=== PATIENT | female | born 1980 | race Caucasian/White ===

== ENCOUNTER → 2016-04-23 | Outpatient (CLI) | payer MEDICAID ==
--- NOTE | 2016-04-23 17:45 | US ---
Ultrasound Extremity, Nonvascular Indication: Palpable lump in the left groin. TECHNIQUE: Grayscale color and cine imaging of the palpable abnormality in the left groin. Findings: There is a well encapsulated avascular semicompressible nodule at the palpable location sup erficial to the abdominal musculature measuring 5.0 x 2.9 x 0.8 cm. IMPRESSION: Findings most consistent with a subcutaneous lipoma measuring 5.0 x 2.9 x 0.8 cm.
== END ==
LOC: FIMAGING 10:29
PROVIDERS: ATTEND Obstetrics & Gynecology
DX: D17.1 Benign lipomatous neoplasm of skin and subcutaneous tissue of trunk (principal)

== ENCOUNTER → 2017-12-17 | Outpatient (CLI) | payer MEDICAID | LOC: FIMAGING 15:17 | PROVIDERS: ATTEND Obstetrics & Gynecology | DX: O09.521 Supervision of elderly multigravida, first trimester (principal); Z3A.12 12 weeks gestation of pregnancy ==

== ENCOUNTER → 2018-02-15 | Outpatient (CLI) | payer MEDICAID | LOC: FIMAGING 11:52 | PROVIDERS: ATTEND Advanced Practice Midwife | DX: O09.522 Supervision of elderly multigravida, second trimester (principal); Z3A.20 20 weeks gestation of pregnancy ==

== ENCOUNTER 2018-03-18 11:17 | Observation (INO) | payer MEDICAID ==
--- NOTE | 2018-03-18 15:53 | PDGENHP ---
History and Physical History and Physical: CARE: [facility] HPI: Patient is a 38 yo G 3 P 2 who presents to L&D after having some bright red bleeding when wiping after a high impact cardio workout. She started feeling some uterine cramping shortly there after and presented to labor and delivery very anxious and worried. She had a small spot of bleeding on her underwear upon arrival but not active bleeding. She reports good activity and describes cramping as mild. She report she has had light spotting on a few occasions after intercourse or a cardio workout over the last several weeks. Denies leaking fluid or other concerns. EDC: 06/28/18 which is based on LMP: 09/22/2017 which is known and consistent with Ultrasound at 8 weeks. Her is complicated by: - anemia - taking iron bid - AMA Review of Systems: Constitutional: Denies any fever, chills, or fatigue HEENT: denies any visual changes, difficulty swallowing, hearing loss Cardiovascular: Denies any chest pain, palpitations, leg swelling Respiratory: denies any cough, wheezing, or shortness of breathe GI: Denies any nausea, vomiting, diarrhea, constipation : denies any dysuria, urgency, frequency, vaginal bleeding Musculoskeletal: denies any muscle or bone pain Skin: denies any rashes Neuro: denies any headache, seizures, lightheadedness, dizziness, or loss of consciousness Psychiatric: denies any depression, anxiety, or SI/HI thoughts HISTORY: Previous OB history: 2013,2016 Past medical history: none Past surgical history: none Medications: PNV, folic acid, iron Allergies (list reaction): NKDA LABS: Rh: A pos ABS: Neg Rubella: Immune HbsAg: NR HIV: NR VDRL: NR 1hr: n/a GC: Neg Chlamydia: Neg Pap: Normal GBS: n/a PHYSICAL EXAM: Constitutional: WN, A&Ox3 HEENT: normocephalic atraumatic, supple Heart: RRR, no murmur Chest: CTA-B Abdomen: Soft, nontender, gravid SVE: ft/thick/high - sterile spec : some dk red/brown blood noted in vagina but no active bleeding. BD Affirm and GBS collected. Extremities: no edema, negative eloisa's sign Neuro: grossly normal Psych: normal affect assessment: Reassuring FHTs, baseline 140s - appropriate for gestational age Contractions: toco : irritable Assessment: 1) 38 yo G 3 P 2 with IUP@ 25 weeks with vaginal bleeding after cardio workout. No active bleeding. 2) Reassuring FHTs. Baby with good activity 3) No longer feeling uterine cramping after 2 hours of surveillance Plan: 1) Will discharge home with bleeding/PTL precautions 2) Pelvic rest/no cardio workouts 3) Follow up next week for normal MURPHY appt. 4) Call with any further bleeding, LOF, painful cramping/contractions 5) Reviewed plan with Dr Loredo.
== END 2018-03-18 14:44 | disposition home or self-care (01) ==
LOC: FLD 11:17
PROVIDERS: ADMIT Advanced Practice Midwife; ATTEND Advanced Practice Midwife
DX: O26.852 Spotting complicating pregnancy, second trimester (principal); O99.012 Anemia complicating pregnancy, second trimester; O09.522 Supervision of elderly multigravida, second trimester; Z3A.25 25 weeks gestation of pregnancy
CPT/HCPCS: G0378

== ENCOUNTER 2018-06-26 05:02 | Inpatient (IN) | payer MEDICAID ==
[2018-06-26] MEDS ORDERED: TERBUTALINE SULFATE 1 MG/ML VIAL ONE (05:13)
[2018-06-26] MEDS ORDERED: MISOPROSTOL 200 MCG TAB ONE (05:13)
[2018-06-26] MEDS ORDERED: LIDOCAINE 1% 300 MG/30 ML SDV ONE (05:13)
[2018-06-26] MEDS ORDERED: OXYTOCIN 10 UNIT/ML VIAL ONE (05:13)
[2018-06-26] MEDS ORDERED: AMMONIA AROMATIC 1 EACH AMP IH ONE (05:13)
[2018-06-26] MEDS ORDERED: OLIVE OIL 118 ML BTL MISC ONE (05:13)
[2018-06-26] MEDS ORDERED: LR 1,000 ML IV PRN (05:34)
[2018-06-26] MEDS ORDERED: LIDOCAINE 1% 300 MG/30 ML SDV SC PRN (05:34)
[2018-06-26] MEDS ORDERED: AMMONIA AROMATIC 1 EACH AMP IH PRN (05:34)
[2018-06-26] MEDS ORDERED: TERBUTALINE SULFATE 1 MG/ML VIAL IV PRN (05:34)
[2018-06-26] MEDS ORDERED: OLIVE OIL 118 ML BTL MISC PRN (05:34)
[2018-06-26] MEDS ORDERED: EPSOM SALT 454 GM TP PRN (05:34)
[2018-06-26] MEDS ORDERED: MISOPROSTOL 200 MCG TAB PO PRN (05:34)
[2018-06-26] MEDS ORDERED: OXYTOCIN/RINGERS LACTATE 1,000 ML IV PRN (05:34)
[2018-06-26] MEDS ORDERED: IBUPROFEN 600 MG TAB PO PRN (05:34)
--- NOTE | 2018-06-26 05:52 | PDGENHP ---
History and Physical History and Physical: Care: [facility] HPI: Bre Tse is a 38 yo with IUP@ 39-4 weeks that presents to L&D with complaints of contractions. They started at 0100, worse since 0300. She denies any LOF, VB. She reports +FM. She is rating pain with contractions 09/13. EDC: 06/28/18 which is based on LMP: 09/22/17 which is known and consistent with Ultrasound at 8 weeks. Her is complicated by: AMA, anemia Review of Systems: Constitutional: Denies any fever, chills, or fatigue HEENT: denies any visual changes, difficulty swallowing, hearing loss Cardiovascular: Denies any chest pain, palpitations, leg swelling Respiratory: denies any cough, wheezing, or shortness of breathe GI: Denies any nausea, vomiting, diarrhea, constipation : denies any dysuria, urgency, frequency, vaginal bleeding Musculoskeletal: denies any muscle or bone pain Skin: denies any rashes Neuro: denies any headache, seizures, lightheadedness, dizziness, or loss of consciousness Psychiatric: denies any depression, anxiety, or SI/HI thoughts HISTORY: Previous OB history: x2 Past medical history: none Past surgical history: none Social: Denies any alcohol, tobacco, or drug use. - Omar. Family history: mother and father - heart disease/HTN Medications: PNV, iron, folic acid Allergies (list reaction): NKDA LABS: Rh: A+ ABS: Neg Rubella: Immune HbsAg: NR HIV: NR VDRL: NR 1hr: 133 GC: Neg Chlamydia: Neg Pap: Normal GBS: negative PHYSICAL EXAM: Constitutional: WN, A&Ox3 HEENT: normocephalic atraumatic, supple Skin: Warm, dry, intact Heart: RRR, no murmur Chest: CTA-B Abdomen: Soft, nontender, gravid SVE: /-1 Extremities: edema, negative homans sign Neuro: grossly normal Psych: normal affect assessment: FHT baseline 130 +accels, no decels, moderate variability Contractions: toco q 4-6 Assessment: * [id number] with IUP@ 39-4wks * Active labor * GBS Negative * cat 1 FHR tracing Plan: * admit to L&D * IA * AROM if desired * pain management PRN * anticipate Today's visit was approximately 30 min, of which >50% of visit 20 min, was spent face to face with pt on direct counseling/coordination of care.
[2018-06-26] MEDS ORDERED: SIMETHICONE 80 MG TAB CHEW PO PRN (07:41)
[2018-06-26] MEDS ORDERED: oxyCODONE IR 5 MG TAB PO PRN (07:41)
[2018-06-26] MEDS ORDERED: HYDROCORTISONE 0.5% CREAM TP PRN (07:41)
[2018-06-26] MEDS ORDERED: DOCUSATE SODIUM 100 MG CAP PO PRN (07:41)
--- NOTE | 2018-06-26 07:51 | OBDEL ---
Info Type: Vaginal Presentation at Delivery: Vertex L&D Analgesia/Anesthesia Type: None GBS+: No Intrapartum Medications: Generic Name Dose Route Start Last Admin Trade Name Freq PRN Reason Stop Dose Admin [place] Oil 118 ml 06/26/18 05:34 06/26/18 06:48 Sweet Oil MISC 12/23/18 05:33 1 btl ONCE PRN Administration perineal massage Indications for Delivery: Spontaneous Labor, SROM Vaginal Delivery - Delivery Provider Delivery Physician/CNM: Shanti Gomez - Labor and Delivery Onset of Contractions Date: 06/26/18 Onset of Contractions Time: 01:00 Onset of Contractions Type: Spontaneous Rupture of Membranes Date: 06/26/18 Rupture of Membranes Time: 06:43 Rupture of Membranes Type: Spontaneous Amniotic Fluid Color: Clear Dilation Complete Date: 06/26/18 Dilation Complete Time: 06:45 Placenta Delivery Date: 06/26/18 Placenta Delivery Time: 07:10 Total Hours of Labor: 6 Repair: 3-0, Vicryl Vaginal Sponge Count Correct: Yes Vaginal Needle Count Correct: Yes Vaginal Sweep Performed: Yes EBL: 250 Delivery Events: None Delivery Comment: delivered standing/squatting. dad helped bring baby to mothers chest [place] Data PARUL: 06/29/18 Gestational Age: 39 week(s) and 4 day(s) [place] Delivery Date: 06/26/18 Delivery Time: 06:49 Sex of : Male Score (1 Min): 8 Score (5 Min): 9 ICD10 Worksheet Patient Problems: Problems Problem Status Onset First degree perineal laceration during delivery Acute (spontaneous vaginal delivery) Acute Labor established Acute Spontaneous rupture of membranes Acute - ICD10 Problem Qualifiers (1) (spontaneous vaginal delivery) (2) First degree perineal laceration during delivery
[2018-06-26] MEDS: ACETAMINOPHEN 325 MG TAB PO PRN ×3 (08:11→20:25)
[2018-06-26] MEDS: IBUPROFEN 600 MG TAB PO PRN ×2 (14:15→20:26)
[2018-06-27] MEDS: IBUPROFEN 600 MG TAB PO PRN ×2 (03:34→09:44)
[2018-06-27] MEDS: ACETAMINOPHEN 325 MG TAB PO PRN (03:35)
[2018-06-27 09:18] VITALS: BP 104/64
--- NOTE | 2018-06-27 10:31 | OBGCSDC ---
General Delivery Information - General Info : 3 Para: 3 Abortions: 0 Type: Vaginal L&D Analgesia/Anesthesia Type: None Admission Date: 06/26/18 - Hospital Course : 06/27/18 11:34 S) Pt doing well, reports min pain and bleeding. she is ambulating and voiding without difficulty. She is . She desires discharge home today. O) VSS, afebrile constitutional: WNF, A&Ox3 HEENT: normocephalic, atraumatic, supple Heart: RRR, No murmur Chest: CTA-B Breasts: soft, nontender,not engorged, nipples normal/intact Abdomen: Soft, nontender Uterus: Firm at U-2 Lochia: Minimal rubra Perineum: Intact, healing well Extremities: Trace edema, and negative Nishant's sign Neuro: Grossly normal A) 38-year-old S/P PPD#1 P) Discharge home today Continue Pelvic rest x6wks Discussed danger signs (infection, preeclampsia, depression, heavy bleeding, etc ) RTO in 2/4/6 weeks Vaginal - Delivery Provider Delivery Physician/CNM: Shanti Gomez - Diagnosis Labor: Spontaneous Rupture of Membranes Type: Spontaneous Amniotic Fluid Color: Clear Repair: 3-0, Vicryl Delivery Events: None - Delivery EBL: 250 [place] Data PARUL: 06/29/18 Gestational Age: 39 week(s) and 5 day(s) [place] Delivery Date: 06/26/18 Delivery Time: 06:49 Sex of : Male Weight (gm): 3776 g Score (1 Min): 8 Score (5 Min): 9 Discharge Information - Discharge Information Condition: Good
== END 2018-06-27 12:00 | disposition home or self-care (01) | DRG 560 ==
LOC: FLD 05:02 → OBSVTOIN 05:36 → FOB 10:00
PROVIDERS: ADMIT Advanced Practice Midwife; ATTEND Advanced Practice Midwife
PROC: 10E0XZZ Delivery of Products of Conception, External Approach (ICD-10-PCS; principal; 2018-06-26)
PROC: 0HQ9XZZ Repair Perineum Skin, External Approach (ICD-10-PCS; principal; 2018-06-26)
DX: O99.02 Anemia complicating childbirth (principal); O70.0 First degree perineal laceration during delivery; D64.9 Anemia, unspecified; Z3A.39 39 weeks gestation of pregnancy; Z37.0 Single live birth
CPT/HCPCS: J2590; J3105